=== PATIENT | female | born 1955 | race Two or more races ===

== ENCOUNTER 2023-12-30 13:42 | Emergency (ER) | payer OTHER ==
[~2023-12-30] VITALS: Ht 154.9 cm; Wt 59.0 kg
[2023-12-30] MEDS ORDERED: ROSUVASTATIN CAL5 MG PO (14:14)
[2023-12-30] MEDS ORDERED: DEXAMETHASONE SODIUM PHOSPHATE 4 MG/ML VIAL IM STA (16:38)
[2023-12-30] MEDS ORDERED: ORPHENADRINE CITRATE 30 MG/ML AMPUL IM STA (16:39)
[2023-12-30] MEDS ORDERED: B-100 COMPLEX100 MG PO (16:45)
[2023-12-30] MEDS ORDERED: [UNRECOGNIZED DRUG - OTHER] PO (16:45)
[2023-12-30] MEDS ORDERED: ORPHENADRINE CITRATE 30 MG/ML AMPUL ONE (16:57)
[2023-12-30] MEDS ORDERED: DEXAMETHASONE SODIUM PHOSPHATE 4 MG/ML VIAL ONE (16:57)
== END 2023-12-30 17:49 | disposition home or self-care (01) ==
LOC: ER 13:44
DX: M79.18 Myalgia, other site (principal)

== ENCOUNTER 2024-09-12 09:27 | Outpatient (CLI) | payer OTHER ==
[~2024-09-12 09:27] MED LIST: B-100 COMPLEX100 MG PO; ROSUVASTATIN CAL5 MG PO; [UNRECOGNIZED DRUG - OTHER] PO
[2024-09-12 10:32] LABS: BASO % 0.9 % (0.1-1.2); EOS # 0.36 (0.04-0.54); EOS % 4.8 % (0.7-7.0); HEMATOCRIT 35.8 % (34.1-44.9); HEMOGLOBIN 11.8 g/dL (11.2-15.7); LYMPH # 2.36 (1.18-3.74); LYMPH % 31.5 % (19.3-53.1); MEAN CORPUSCULAR HEMOGLOBIN 28.6 pg (25.6-32.2); MONO # 0.35 (0.24-0.82); MONO % 4.7 % (4.7-12.5); NEUT # 4.34 (1.56-6.13); NEUT % 57.8 % (34.0-71.1); PLATELET COUNT 378 K/uL (163-369); RED BLOOD COUNT 4.13 M/uL (3.93-5.22); RED CELL DISTRIBUTION WIDTH 13.3 % (11.6-14.4)
[2024-09-12 10:50] LABS: PH,URINE 7.5 (5.0-8.0); URINE APPEARANCE Clear; URINE BILIRRUBIN Negative (NEGATIVE); URINE BLOOD Negative; URINE COLOR Dark Yellow; URINE GLUCOSE Negative (NEGATIVE); URINE KETONE Negative (NEGATIVE); URINE LEUKOCYTE Trace; URINE NITRATE Positive; URINE PROTEIN Trace (NEGATIVE)
[2024-09-12 10:54] LABS: URINE BACTERIA 1491.9 uL (0.0-1933); URINE EPITHELIAL CELLS 67.4 uL (0.0-38.8); URINE WBC 16.6 uL (0.0-23.2)
[2024-09-12 12:05] LABS: ALBUMIN 3.9 gm/dL (3.4-5.0); BILIRUBIN TOTAL 0.25 mg/dL (0.3-1.2); CALCIUM 8.6 mg/dL (8.5-10.1); CHOL HDL RATIO 3.4 (0-5.0); CREATININE SERUM 0.91 mg/dL (0.55-1.02); GFR 61.66; GLOBULINA 3.3 G/DL (2.4-3.5); POTASSIUM 4.03 mEq/L (3.5-5.1); T4 FREE 0.9 NG/ML (0.76-1.46); TOTAL PROTEIN 7.2 gm/dL (6.4-8.2); TSH 1.66 uIU/mL (0.358-3.74)
[2024-09-14 05:07] LABS: ESTRADIOL SERUM < 5.0 pg/mL (0.0-54.7); PROLACTIN 10.4 ng/mL (3.6-25.2); hav igm Negative (Negative); hcv Non Reactive (Non Reactive); hep b c Negative (Negative); hep b s ag Negative (Negative)
== END 2024-09-12 09:36 | disposition home or self-care (01) ==
LOC: LAB 09:27
DX: N93.8 Other specified abnormal uterine and vaginal bleeding (principal); N95.0 Postmenopausal bleeding; N95.1 Menopausal and female climacteric states; D64.9 Anemia, unspecified; E78.5 Hyperlipidemia, unspecified; A50.1 Early congenital syphilis, latent; Z11.4 Encounter for screening for human immunodeficiency virus [HIV]; N80.9 Endometriosis, unspecified; E11.9 Type 2 diabetes mellitus without complications; E55.9 Vitamin D deficiency, unspecified; N39.0 Urinary tract infection, site not specified; E03.8 Other specified hypothyroidism; R10.2 Pelvic and perineal pain